=== PATIENT | female | born 1975 ===

== ENCOUNTER 2017-11-17 18:21 | Emergency (ER) | payer SELFPAY ==
[2017-11-17 19:44] LABS: VENOUS BLOOD GAS PCO2 48 mmHg (40-60); VENOUS BLOOD GAS PO2 24 mm/Hg (30-55); VENOUS BLOOD PH 7.36 (7.32-7.43)
[2017-11-17 19:45] LABS: BASO % 0.5 % (0.0-2.0); EOS # 0.1 K/uL (0.0-0.7); EOS % 1.3 % (0.0-4.0); HEMOGLOBIN 11.6 g/dL (12.0-16.0); LYMPH # 1.5 K/uL (1.0-4.3); LYMPH % 24.5 % (20.0-40.0); MEAN CELL VOLUME 89.1 fl (81.0-99.0); MEAN CORPUSCULAR HEMOGLOBIN 28.5 pg (27.0-31.0); MEAN CORPUSCULAR HGB CONC 31.9 g/dL (33.0-37.0); MEAN PLATELET VOLUME 10.1 fl (7.2-11.7); MONO # 0.5 K/uL (0.0-0.8); MONO % 8.2 % (0.0-10.0); NEUT # 3.9 K/uL (1.8-7.0); NEUT % 65.5 % (50.0-75.0); RBC 4.08 Mil/uL (3.80-5.20); RED CELL DISTRIBUTION WIDTH 14.6 % (11.5-14.5); WHITE BLOOD COUNT 5.9 K/uL (4.8-10.8)
[2017-11-17 19:56] LABS: ALB/GLOB RATIO 1.4 (1.0-2.1); ALT/SGPT 33 U/L (9-52); AST/SGOT 23 U/L (14-36); BLOOD UREA NITROGEN 9 mg/dl (7-17); CALCIUM 8.6 mg/dL (8.4-10.2); GFR AFRICAN-AMERICAN > 60; GFR NON-AFRICAN AMERICAN > 60
[2017-11-17 20:08] LABS: B-TYPE NATRIURETIC PEPTIDE 29.5 pg/ml (0-450)
--- NOTE | 2017-11-17 20:14 | ED PDOC ---
History of Present Illness History of Present Illness: 42 y/o female with no significant PMHx presents to the ED complaining of URI symptoms, onset four days ago. Patient reports of a mild non-productive cough, chest tightness, itchy throat and red eyes. Patient thought they were initially due to allergies. Patient also reports she moved into a new apartment four days ago and had been experiencing a gas like smell. Patient called [employer] today and found a gas leak in her home and that the carbon monoxide monitor was not functioning properly. Patient states when she leaves the home she starts to feel much better. Patient reports her dog has also been less active than usual but initially thought it was because of the new apartment. Patient additionally reports gas leak has been turned off. Patient states she saw PMD today and was told to come to the ER for further evaluation, specifically carbon monoxide poisoning. PMD: Mauricio Bustamante HPI: Influenza Time Seen by Provider: 11/17/17 18:40 Chief Complaint: Cough, Cold, Congestion Chief Complaint (Provider): Cough, Cold, Congestion History Per: Patient Exam Limitations: no limitations Onset/Duration Of Symptoms: Days (x4) Symptoms include: sore throat (itcy), cough, chest pain (tightness) Sick Contacts (Context): None Past Medical History Reviewed: Historical Data, Nursing Documentation, Vital Signs Vital Signs: Last Vital Signs Temp 98.4 F 11/17/17 18:34 Pulse 63 11/17/17 18:34 Resp 16 11/17/17 18:34 BP 103/65 11/17/17 18:34 Pulse Ox 97 11/17/17 18:34 - Medical History PMH: No Chronic Diseases - Surgical History Surgical History: No Surg Hx - Family History Family History: States: No Known Family Hx - Social History Current smoker - smoking cessation education provided: No - Allergies Allergies/Adverse Reactions: Allergies Allergy/AdvReac Type Severity Reaction Status Date / Time No Known Allergies Allergy Verified 11/17/17 18:34 Review of Systems ROS Statement: Except As Marked, All Systems Reviewed And Found Negative (As per HPI) Eyes: Positive for: Redness ENT: Positive for: Throat Pain (itchy) Cardiovascular: Positive for: Chest Pain (tightness) Respiratory: Positive for: Cough (mild, non-productive) Physical Exam - Reviewed Nursing Documentation Reviewed: Yes Vital Signs Reviewed: Yes - Physical Exam Appears: Positive for: Well, Non-toxic, No Acute Distress Head Exam: Positive for: ATRAUMATIC, NORMOCEPHALIC Skin: Positive for: Warm, Dry Eye Exam: Positive for: EOMI, PERRL, Conjunctival injection ENT: Positive for: Pharynx Is (clear) Neck: Positive for: Painless ROM, Supple Cardiovascular/Chest: Positive for: Regular Rate, Rhythm. Negative for: Murmur Respiratory: Positive for: Normal Breath Sounds. Negative for: Wheezing Gastrointestinal/Abdominal: Positive for: Soft. Negative for: Tenderness Back: Positive for: Normal Inspection. Negative for: Decreased ROM Extremity: Positive for: Normal ROM. Negative for: Deformity Lymphatic: Negative for: Adenopathy Neurologic/Psych: Positive for: Alert. Negative for: Motor/Sensory Deficits Medical Decision Making Medical Decision Making: Time: 1934 Impression: Flu like symptoms Differentials include but not limited to Upper Respiratory Infection, carbon monoxide poisoning, and chemical exposure. Plan: -- VBG -- EKG -- B-Type Natriretic -- CMP -- Magnesium -- Phosphorus -- Troponin I -- CBC with differentials -- CXR Two Views -- IV Insertion -- LS Spine AP/LAT XR ___ Scribe Attestation: Documented by Olya Barragan acting as a scribe for Dr. Lilly Macedo. Provider Scribe Attestation: All medical record entries made by the Scribe were at my direction and personally dictated by me. I have reviewed the chart and agree that the record accurately reflects my personal performance of the history, physical exam, medical decision making, and the department course for this patient. I have also personally directed, reviewed, and agree with the discharge instructions and disposition. - Laboratory Results Result Diagrams: 11/17/17 19:35 11/17/17 19:35 - ECG O2 Sat by Pulse Oximetry: 97 (RA) Pulse Ox Interpretation: Normal Disposition - Clinical Impression Clinical Impression: Exposure to natural gas - Disposition Referrals: Mauricio Bustamante MD [Family Provider] - Disposition: Routine/Home Disposition Time: 20:00 Condition: STABLE Additional Instructions: FOLLOW UP WITH YOUR PMD TOMORROW FOR REEVALUATION DRINK PLENTY OF HYDRATING FLUIDS AND REST AVOID THE AREA POSSIBLE GAS EXPOSURE FOR TONIGHT. Forms: [employer] (Ugandan)
[2017-11-17 20:23] VITALS: BP 128/78; PULSE 78; RESP 19; TEMP 97
[2017-11-17 20:28] VITALS: O2SAT 97
--- NOTE | 2017-11-18 07:21 | CARD ---
APPROVED REPORT Date of service: 11/17/2017 <Conclusion> Normal sinus rhythm Normal ECG
--- NOTE | 2017-11-18 08:35 | RAD ---
Date of service: 11/17/2017 HISTORY: chest pain COMPARISON: No prior. TECHNIQUE: Chest PA and lateral FINDINGS: LUNGS: No active pulmonary disease. PLEURA: No significant pleural effusion identified. No pneumothorax apparent. CARDIOVASCULAR: Normal. OSSEOUS STRUCTURES: No significant abnormalities. VISUALIZED UPPER ABDOMEN: Normal. OTHER FINDINGS: None. IMPRESSION: No acute cardiopulmonary disease appreciated.
== END 2017-11-17 20:30 | disposition home or self-care (01) ==
LOC: H.ER 18:21
DX: Z77.098 Contact with and (suspected) exposure to other hazardous, chiefly nonmedicinal, chemicals (principal)

== ENCOUNTER 2018-08-13 00:23 | Emergency (ER) | payer SELFPAY ==
[2018-08-13 00:55] VITALS: TEMP 98
[2018-08-13] MEDS ORDERED: Sodium Chloride 0.9% 1,000 ML IV STA (02:04)
--- NOTE | 2018-08-13 02:11 | ED PDOC ---
HPI: Headache Time Seen by Provider: 08/13/18 02:00 Chief Complaint (Nursing): Headache Chief Complaint (Provider): headache, arm and neck pain History Per: Patient History/Exam Limitations: no limitations Onset/Duration Of Symptoms: Days Current Symptoms Are (Timing): Still Present Severity: Moderate Pain Scale Rating Of: 8 Quality: "Pain" Preceeding Symptoms: None Associated Symptoms: Photophobia, Nausea Additional History Per: Patient Additional Complaint(s): 43 y/o female with no medical history presents to the ED c/o left shoulder ache rad to neck with associated headache since early this week. Patient states last week Tuesday receiving a Tetanus vaccine to left arm and 3 days later developing pain to left arm that has gradually progressed to left shoulder and neck. Patient states it felt like "stiff neck" but reports she got a massage that alleviated pain for a while on as well as tuesday. Patient also states she has been taking advil with temporary relief. Additionally she reports having headache for a few days with photophobia, nausea and 1 episode of diarrhea today. Patient denies fever, shortness of breath or chest pain. Past Medical History Reviewed: Historical Data, Nursing Documentation, Vital Signs Vital Signs: Last Vital Signs Temp 98 F 08/13/18 00:52 Pulse 64 08/13/18 00:52 Resp 14 08/13/18 00:52 BP 136/81 08/13/18 00:52 Pulse Ox 100 08/13/18 00:52 [facility]NOR Report Viewed: No - Medical History PMH: No Chronic Diseases - Surgical History Surgical History: No Surg Hx - Family History Family History: States: Unknown Family Hx - Living Arrangements Living Arrangements: With Family - Social History Alcohol: None Drugs: Denies - Home Medications Home Medications: Ambulatory Orders Medication Instructions Recorded Cyclobenzaprine [Cyclobenzaprine 10 mg PO Q8H PRN #15 tab 08/13/18 HCl] Naproxen 500 mg PO Q12H PRN #30 tab 08/13/18 - Allergies Allergies/Adverse Reactions: Allergies Allergy/AdvReac Type Severity Reaction Status Date / Time No Known Allergies Allergy Verified 08/13/18 00:51 Review of Systems ROS Statement: Except As Marked, All Systems Reviewed And Found Negative Constitutional: Negative for: Fever, Chills, Sweats, Weakness, Malaise Physical Exam - Reviewed Nursing Documentation Reviewed: Yes Vital Signs Reviewed: Yes - Physical Exam Appears: Positive for: Well, Non-toxic, Uncomfortable Head Exam: Positive for: ATRAUMATIC, NORMAL INSPECTION, NORMOCEPHALIC Skin: Positive for: Normal Color, Warm, DRY Eye Exam: Positive for: Normal appearance, EOMI, PERRL. Negative for: Nystagmus, Periorbital swelling, Periorbital tenderness, Conjunctival injection, Scleral icterus ENT: Positive for: Normal ENT Inspection Neck: Positive for: Normal, Trachea Midline, Pain On Movement Of Neck Cardiovascular/Chest: Positive for: Regular Rate, Rhythm, Chest Non Tender Respiratory: Positive for: CNT, Normal Breath Sounds Pulses-Radial (L): 2+ Pulses-Radial (R): 2+ Gastrointestinal/Abdominal: Positive for: Normal Exam, Soft Back: Positive for: Normal Inspection. Negative for: L CVA Tenderness, R CVA Tenderness Extremity: Positive for: Normal ROM Neurological/Psych: Positive for: Awake, Alert, Normal Tone, Oriented, Gait (normal ), software product specialist II-XII (intact). Negative for: Motor/Sensory Deficits, Facial Droop - Laboratory Results Result Diagrams: 08/13/18 02:30 08/13/18 02:30 - ECG O2 Sat by Pulse Oximetry: 100 Medical Decision Making Medical Decision Making: --CBC --CMP --UA --UPREG --0.9NS --FLEXERIL --REGLAN --TORADOL --RE ASSESS 04:29: PATIENT FOUND SLEEPING IN ROOM, EASILY AROUSABLE. PATIENT STATES HEADACHE AND BACK PAIN HAS SUBSIDED. LABS REVIEWED AND DISCUSSED WITH PATIENT. NO FURTHER WORK UP NEEDE IN ED. PATIENT STABLE FOR DISCHARGE. PATIENT GIVEN RX FOR NAPROXEN 500MG Q12H AND FLEXERIL. PATIENT ADVISED NOT TO DRIVE OR OPERATE HEAVY MACHINERY WHIL ETAKING FLEXERIL DUE TO DROWSINESS. WARM COMPRESSES TO AREA. PATIENT WILL BE TAKING UBER HOME FROM ED. RETURN TO ED PRECAUTIONS GIVEN. PATIENT FOLLOW-UP WITH PMD NEEDED. PATIENT STATES UNDERSTANDING AND AGREES WITH PLAN. Disposition - Clinical Impression Clinical Impression: Trapezius muscle spasm, Headache - Patient ED Disposition Is Patient to be Admitted: No Counseled Patient/Family Regarding: Diagnosis, Rx Given - Disposition Disposition: Routine/Home Disposition Time: 04:00 Condition: IMPROVED Prescriptions: Cyclobenzaprine [Cyclobenzaprine HCl] 10 mg PO Q8H PRN #15 tab PRN Reason: Muscle Spasm Naproxen 500 mg PO Q12H PRN #30 tab PRN Reason: Pain, Moderate (4-7) Instructions: Muscle Spasms (DC), Headache, Adult (DC) Forms: [facility] (Khmer) - POA Present On Arrival: None
[2018-08-13 02:52] LABS: BASO % 0.5 % (0.0-2.0); EOS # 0.1 K/uL (0.0-0.7); EOS % 1.6 % (0.0-4.0); HEMOGLOBIN 11.7 g/dL (12.0-16.0); LYMPH % 28.5 % (20.0-40.0); MEAN CELL VOLUME 87.3 fl (81.0-99.0); MEAN CORPUSCULAR HEMOGLOBIN 28.1 pg (27.0-31.0); MEAN CORPUSCULAR HGB CONC 32.2 g/dL (33.0-37.0); MEAN PLATELET VOLUME 9.3 fl (7.2-11.7); MONO # 0.4 K/uL (0.0-0.8); MONO % 6.4 % (0.0-10.0); NEUT # 4.4 K/uL (1.8-7.0); NRBC % 0.1 % (0.0-0.0); RBC 4.17 Mil/uL (3.80-5.20); RED CELL DISTRIBUTION WIDTH 14.3 % (11.5-14.5)
[2018-08-13 02:58] LABS: SQUAMOUS EPITHIAL 8 /hpf (0-5); URINE BILIRUBIN NEGATIVE (NEGATIVE); URINE BLOOD NEGATIVE (NEGATIVE); URINE CLARITY CLOUDY (Clear); URINE COLOR YELLOW (YELLOW); URINE GLUCOSE (UA) NEG (NEGATIVE); URINE LEUKOCYTE ESTERASE TRACE Leu/uL (Negative); URINE PROTEIN NEGATIVE (NEGATIVE); URINE UROBILINOGEN 0.2-1.0 mg/dL (0.2-1.0)
[2018-08-13 03:04] LABS: ALB/GLOB RATIO 1.4 (1.0-2.1); ALBUMIN 4.2 g/dL (3.5-5.0); ALT/SGPT 26 U/L (9-52); AST/SGOT 22 U/L (14-36); BLOOD UREA NITROGEN 10 mg/dl (7-17); CALCIUM 8.8 mg/dL (8.4-10.2); GFR NON-AFRICAN AMERICAN > 60
[2018-08-13 04:57] VITALS: BP 138/73; PULSE 67; RESP 17; O2SAT 99
== END 2018-08-13 04:57 | disposition home or self-care (01) ==
LOC: H.ER 00:23
DX: R51 Headache (principal); M62.838 Other muscle spasm
CPT/HCPCS: 80053; 81003; 81025; 85025; 96361; 96374; 96375; 99285; J1885; J2765; J7030